=== PATIENT | male | born 1940 | race Caucasian/White ===

== ENCOUNTER → 2017-04-02 | Outpatient (CLI) | payer MEDICARE, SELFPAY | PROVIDERS: Visit Provider Optometrist | DX: G43.B1 Ophthalmoplegic migraine, intractable (principal) | CPT/HCPCS: 70553; A9576 ==

== ENCOUNTER → 2020-03-23 13:18 | Outpatient (CLI) | payer MEDICARE, SELFPAY ==
[2020-03-25 09:10] LABS: Covid-19 Nasal PCR Sendout UK Not Detected
== END ==
PROVIDERS: Visit Provider Radiology Diagnostic Radiology
DX: Z03.818 Encounter for observation for suspected exposure to other biological agents ruled out (principal)
CPT/HCPCS: U0003; U0004